=== PATIENT | male | born 1940 | race Caucasian/White ===

== ENCOUNTER 2018-10-09 06:46 | Emergency (ER) | payer MEDICARE ==
[~2018-10-09] VITALS: Ht 180.3 cm; Wt 85.5 kg
[~2018-10-09 06:46] MED LIST: ALBU18HF INH; AMLO10TA8 PO; ASPI-515 PO; CEFD300C37 PO; DOXY100C15 PO; FLUT1DIS3 INH; INSU100I28 SQ-INSULIN; INSU500V SQ; IPRA3AMP30 NEB; IRBE300T16 PO; LEVO750T26 PO; LISI-170 PO; LOVA10TA PO; METO-99 PO; MULT1TAB60 PO; OMEP-110 PO; PRED10TA PO; SITA1TAB5 PO; TIOT18CA INH
--- NOTE | 2018-10-09 06:57 | NUR ---
EKG IN TRIAGE. PT AMBULATES WITH STEADY GAIT.
[2018-10-09] MEDS ORDERED: ALBUTEROL/IPRATROPIUM 2.5MG/0.5MG, 3 ML NPPB ONE (07:30)
[2018-10-09 07:38] LABS: BASOPHILS # (AUTO) 0.04 x10^3/uL (0-0.1); BASOPHILS % (AUTO) 0 % (0-1); EOSINOPHILS # (AUTO) 0.16 x10^3/uL (0-0.4); EOSINOPHILS % (AUTO) 2 % (1-7); LYMPHOCYTES # (AUTO) 1.36 x10^3/uL (1-3.4); LYMPHOCYTES % (AUTO) 13 % (22-44); MD NO; MEAN CORPUSCULAR HEMOGLOBIN 31.9 pg (27.5-34.5); MEAN CORPUSCULAR VOLUME 96.7 fL (81-97); MEAN PLATELET VOLUME 7.6 fL (7.4-10.4); MONOCYTES # (AUTO) 1.08 x10^3/uL (0.2-0.8); MONOCYTES % (AUTO) 11 % (2-9); NEUTROPHILS # (AUTO) 7.68 x10^3/uL (1.8-6.8); NEUTROPHILS % (AUTO) 74 % (42-75); PLATELET COUNT 438 x10^3/uL (130-400); RED BLOOD COUNT 4.59 x10^6/uL (4.38-5.82); RED CELL DISTRIBUTION WIDTH 13.8 % (9.4-14.8)
[2018-10-09] MEDS ORDERED: ALBUTEROL/IPRATROPIUM 2.5MG/0.5MG, 3 ML ONE (07:41)
[2018-10-09 07:50] LABS: ALANINE AMINOTRANSFERASE 26 U/L (12-78); ANION GAP 8 mmol/L (5-15); CHLORIDE 95 mmol/L (98-107)
[2018-10-09 07:54] LABS: ALKALINE PHOSPHATASE 71 U/L (45-117); BILIRUBIN,TOTAL 0.5 mg/dL (0.2-1.0); CREATININE 0.63 mg/dL (0.7-1.3); TOTAL PROTEIN 7.7 g/dL (6.4-8.2); TROPONIN I < 0.015 ng/mL (0.000-0.045)
[2018-10-09 09:04] VITALS: BP 175/88
[2018-10-09] MEDS ORDERED: BICILLIN-LA 1,200,000 UNITS/2 ML IM ONE (10:00)
[2018-10-09] MEDS ORDERED: DEXAMETHASONE 4 MG/ML, 1ML PO ONE (10:00)
[2018-10-09] MEDS ORDERED: DEXAMETHASONE 4 MG/ML, 5ML ONE (10:06)
== END 2018-10-09 11:29 | disposition home or self-care (01) ==
LOC: ED 08:24
DX: J20.9 Acute bronchitis, unspecified (principal); I25.10 Atherosclerotic heart disease of native coronary artery without angina pectoris; I10 Essential (primary) hypertension; Z95.1 Presence of aortocoronary bypass graft; E11.9 Type 2 diabetes mellitus without complications
CPT/HCPCS: 36415; 71045; 80053; 83605; 83880; 84145; 84484; 85025; 87040; 93005; 94640; 99284; J1100; J7620

== ENCOUNTER 2019-12-20 07:23 | Emergency (ER) | payer MEDICARE ==
[~2019-12-20] VITALS: Ht 180.3 cm; Wt 93.5 kg
[~2019-12-20 07:23] MED LIST changes: -IRBE300T16 PO; +IRBE300T8 PO
--- NOTE | 2019-12-20 07:41 | NUR ---
PT TO ED WITH GI-BLEEDING STATES PHYLLIS RED BLOOD X3 WEEKS, WORSENING PERIUMBILICAL PAIN OVER THE LAST FEW DAYS, STATES HX OF THIS FOR 55 YEARS BUT COMES AND GOES. DENIES N/V/D. PT PLACED ON MONITOR, MD AT BEDSIDE FOR ASSESSMENT.
[2019-12-20 08:05] LABS: BASOPHILS # (AUTO) 0.01 x10^3/uL (0-0.1); BASOPHILS % (AUTO) 0 % (0-1); EOSINOPHILS # (AUTO) 0.32 x10^3/uL (0-0.4); EOSINOPHILS % (AUTO) 4 % (1-7); LYMPHOCYTES # (AUTO) 1.23 x10^3/uL (1-3.4); LYMPHOCYTES % (AUTO) 14 % (22-44); MD NO; MEAN CORPUSCULAR HEMOGLOBIN 29.9 pg (27.5-34.5); MEAN CORPUSCULAR HGB CONC 32.2 g/dL (33.2-36.2); MEAN CORPUSCULAR VOLUME 92.9 fL (81-97); MEAN PLATELET VOLUME 7.6 fL (7.4-10.4); MONOCYTES # (AUTO) 0.82 x10^3/uL (0.2-0.8); MONOCYTES % (AUTO) 10 % (2-9); NEUTROPHILS # (AUTO) 6.21 x10^3/uL (1.8-6.8); NEUTROPHILS % (AUTO) 72 % (42-75); PLATELET COUNT 343 x10^3/uL (130-400); RED BLOOD COUNT 4.69 x10^6/uL (4.38-5.82)
[2019-12-20 08:17] LABS: ALANINE AMINOTRANSFERASE 19 U/L (12-78); ANION GAP 7 mmol/L (5-15); CALCIUM 9.2 mg/dL (8.5-10.1); CHLORIDE 103 mmol/L (98-107)
[2019-12-20 08:20] LABS: ALKALINE PHOSPHATASE 57 U/L (45-117); BILIRUBIN,TOTAL 0.5 mg/dL (0.2-1.0); CREATININE 0.79 mg/dL (0.7-1.3); TOTAL PROTEIN 7.5 g/dL (6.4-8.2)
--- NOTE | 2019-12-20 08:47 | NUR ---
IV ESTABLISHED FOR CT SCAN, URINE SAMPLE WALKED TO LAB. PT RESTING IN [facility], ON MONITOR, CALL LIGHT WITHIN REACH.
[2019-12-20 08:48] LABS: MICROSCOPIC NOT IND
[2019-12-20 08:51] LABS: CULTURE INDICATED? NO
--- NOTE | 2019-12-20 09:13 | NUR ---
REPORT RECEIVED FROM PREET VAN. PT IS RESTING COMFORTABLY ON GURNEY, A&O, RESPS EVEN AND UNLABORED. PT DENIES PAIN, DENIES ANY NEEDS AT THIS TIME. AWAITING CT SCAN AND DISPO AT THIS TIME.
--- NOTE | 2019-12-20 09:45 | NUR ---
PT TO CT. NADN AT TRANSPORT.
[2019-12-20] MEDS ORDERED: OMNIPAQUE 350 MG/ML, 100ML BOTTLE ONE (09:54)
--- NOTE | 2019-12-20 10:10 | NUR ---
PT BACK FROM CT.
[2019-12-20 10:34] VITALS: BP 144/89
--- NOTE | 2019-12-20 10:34 | NUR ---
CHARU Torres at bedside to update pt with POC and results. pt a&o, resps even and unlabored. rodn at this time.
--- NOTE | 2019-12-20 10:53 | NUR ---
pt given dc instructions with instructions to follow up with MD Saleem (GI); contact info provided. pt has not passed any stool/blood with this ED stay. pt is a&o, resps eevn and unlabored, no complaint at dc. pt ambulatory to dc desk with steady gait. all questions answered.
== END 2019-12-20 10:54 | disposition home or self-care (01) ==
LOC: ED 07:52
DX: K62.5 Hemorrhage of anus and rectum (principal); R10.33 Periumbilical pain; R10.13 Epigastric pain; E78.5 Hyperlipidemia, unspecified; I25.10 Atherosclerotic heart disease of native coronary artery without angina pectoris; I10 Essential (primary) hypertension
CPT/HCPCS: 36415; 74177; 80053; 81003; 83605; 83690; 85025; 86850; 86900; 86902; 99285; Q9967

== ENCOUNTER 2020-01-20 08:59 | Outpatient (CLI) | payer MEDICARE ==
[~2020-01-20 08:59] MED LIST changes: +MULT-449 PO; -MULT1TAB60 PO
== END 2020-01-20 23:59 | disposition home or self-care (01) ==
LOC: STAR 08:59
PROVIDERS: ATTEND Internal Medicine Gastroenterology
DX: Z01.818 Encounter for other preprocedural examination (principal); Z11.59 Encounter for screening for other viral diseases
CPT/HCPCS: 93005; U0001

== ENCOUNTER 2020-01-26 05:57 | Day surgery (SDC) | payer MEDICARE ==
[~2020-01-26] VITALS: Ht 180.3 cm; Wt 88.0 kg
[~2020-01-26 05:57] MED LIST changes: -MULT-449 PO; +MULT1TAB60 PO
[2020-01-26 06:34] VITALS: BP 137/75
[2020-01-26] MEDS ORDERED: CHLORHEXIDINE 15 ML UDC MM STA (06:38)
[2020-01-26] MEDS ORDERED: LACTATED RINGERS 1,000 ML IV SCH (06:41)
[2020-01-26] MEDS ORDERED: FENTANYL PF 100 MCG/2ML ONE (07:05)
[2020-01-26] MEDS ORDERED: MIDAZOLAM 1 MG/ML, 2ML ONE (07:05)
[2020-01-26] MEDS ORDERED: FENTANYL PF 100 MCG/2ML IV PRN (07:30)
[2020-01-26] MEDS ORDERED: PROPOFOL 10 MG/ML, 20ML ONE (07:30)
[2020-01-26] MEDS ORDERED: HYDROmorphone 1 MG/ML, 1ML INJ IVPush PRN (07:30)
[2020-01-26] MEDS ORDERED: LABETALOL 5MG/ML, 20ML IV PRN (07:30)
[2020-01-26] MEDS ORDERED: PROMETHAZINE 25 MG/ML, 1ML IVPush PRN (07:30)
[2020-01-26] MEDS ORDERED: EPHEDRINE 50 MG/ML, 1ML ONE (07:30)
[2020-01-26] MEDS ORDERED: SUCCINYLCHOLINE 20 MG/ML, 10ML ONE (07:30)
[2020-01-26] MEDS ORDERED: hydrALAzine 20 MG/ML, 1ML IV PRN (07:30)
[2020-01-26] MEDS ORDERED: ONDANSETRON 2MG/ML, 2ML IVPush PRN (07:30)
[2020-01-26] MEDS ORDERED: HYDROcodone/APAP 7.5-325MG/15ML UDC PO PRN (07:30)
[2020-01-26] MEDS ORDERED: ONDANSETRON 2MG/ML, 2ML ONE (07:31)
== END 2020-01-26 11:00 | disposition home or self-care (01) ==
LOC: OUT 05:57
PROVIDERS: ATTEND Internal Medicine Gastroenterology
DX: R13.10 Dysphagia, unspecified (principal); K62.5 Hemorrhage of anus and rectum; D12.2 Benign neoplasm of ascending colon; K31.7 Polyp of stomach and duodenum; K62.7 Radiation proctitis; K44.9 Diaphragmatic hernia without obstruction or gangrene; K57.30 Diverticulosis of large intestine without perforation or abscess without bleeding; K64.0 First degree hemorrhoids; K55.059 Acute (reversible) ischemia of intestine, part and extent unspecified; J44.9 Chronic obstructive pulmonary disease, unspecified; I25.10 Atherosclerotic heart disease of native coronary artery without angina pectoris; I10 Essential (primary) hypertension; E11.9 Type 2 diabetes mellitus without complications; E78.5 Hyperlipidemia, unspecified; E66.3 Overweight; Z68.29 Body mass index [BMI] 29.0-29.9, adult; Z79.82 Long term (current) use of aspirin; Z79.4 Long term (current) use of insulin; Z79.899 Other long term (current) drug therapy; Z85.46 Personal history of malignant neoplasm of prostate; Z90.49 Acquired absence of other specified parts of digestive tract; Z92.3 Personal history of irradiation; Z95.1 Presence of aortocoronary bypass graft; Z98.890 Other specified postprocedural states
CPT/HCPCS: 43239; 43248; 45380; 45382; 45385; 82962; 88305; J0330; J2250; J2405; J2704; J3010; J7120

== ENCOUNTER 2020-12-19 06:35 | Day surgery (SDC) | payer MEDICARE ==
[~2020-12-19] VITALS: Ht 180.3 cm; Wt 87.0 kg
[~2020-12-19 06:35] MED LIST changes: +AMLO-211 PO; -AMLO10TA8 PO; -ASPI-515 PO; +ASPI-963 PO; +MULT-449 PO; -MULT1TAB60 PO
[2020-12-19] MEDS ORDERED: LACTATED RINGERS 1,000 ML IV SCH (07:30)
[2020-12-19] MEDS ORDERED: CHLORHEXIDINE 15 ML UDC PO ONE (07:30)
[2020-12-19 07:31] VITALS: BP 148/67
[2020-12-19] MEDS ORDERED: ONDANSETRON 2MG/ML, 2ML IVPush PRN (09:30)
[2020-12-19] MEDS ORDERED: EPHEDRINE 50 MG/ML, 1ML IVPush PRN (09:30)
[2020-12-19] MEDS ORDERED: PROMETHAZINE 25 MG/ML, 1ML IVPush PRN (09:30)
[2020-12-19] MEDS ORDERED: HYDROmorphone 1 MG/ML, 1ML INJ IVPush PRN (09:30)
[2020-12-19] MEDS ORDERED: ACETAMINOPHEN 325 MG TABLET PO PRN (09:30)
[2020-12-19] MEDS ORDERED: OXYcodone 5 MG/5 ML ORAL.SOL UDC PO PRN (09:30)
[2020-12-19] MEDS ORDERED: LABETALOL 5MG/ML, 20ML IV PRN (09:30)
[2020-12-19] MEDS ORDERED: FENTANYL PF 100 MCG/2ML IV PRN (09:30)
[2020-12-19] MEDS ORDERED: hydrALAzine 20 MG/ML, 1ML IV PRN (09:30)
[2020-12-19] MEDS ORDERED: PROPOFOL 10 MG/ML, 20ML ONE ×2 (09:48→10:04)
[2020-12-19] MEDS ORDERED: PROPOFOL 50 ML ONE (09:48)
[2020-12-19] MEDS ORDERED: EPHEDRINE 50 MG/ML, 1ML ONE (10:03)
== END 2020-12-19 12:05 | disposition home or self-care (01) ==
LOC: OUT 06:35
PROVIDERS: ATTEND Internal Medicine
DX: R10.13 Epigastric pain (principal); K55.21 Angiodysplasia of colon with hemorrhage; K62.7 Radiation proctitis; K64.8 Other hemorrhoids; K21.9 Gastro-esophageal reflux disease without esophagitis; K29.50 Unspecified chronic gastritis without bleeding; K57.30 Diverticulosis of large intestine without perforation or abscess without bleeding; K31.7 Polyp of stomach and duodenum; I25.10 Atherosclerotic heart disease of native coronary artery without angina pectoris; E11.9 Type 2 diabetes mellitus without complications; I10 Essential (primary) hypertension; E78.5 Hyperlipidemia, unspecified; J44.9 Chronic obstructive pulmonary disease, unspecified; E66.3 Overweight; Z68.28 Body mass index [BMI] 28.0-28.9, adult; Z20.822 Contact with and (suspected) exposure to COVID-19; Z79.82 Long term (current) use of aspirin; Z79.4 Long term (current) use of insulin; Z79.899 Other long term (current) drug therapy; Z85.46 Personal history of malignant neoplasm of prostate; Z86.010 Personal history of colon polyps; Z92.3 Personal history of irradiation; Z95.1 Presence of aortocoronary bypass graft; Z90.49 Acquired absence of other specified parts of digestive tract; Z98.890 Other specified postprocedural states
CPT/HCPCS: 43239; 43251; 45382; 82962; 88305; 93005; J2704; J7120; U0003

== ENCOUNTER 2021-02-15 05:01 | Emergency (ER) | payer MEDICARE ==
[~2021-02-15] VITALS: Ht 180.3 cm; Wt 86.2 kg
[~2021-02-15 05:01] MED LIST changes: +DOXY-246 PO; -DOXY100C15 PO
--- NOTE | 2021-02-15 05:40 | NUR ---
PT COMPLAINING OF LOWER ABDOMENAL PAIN WITH HEMATURIA. PT AMBULATED TO BATHROOM WITH STEADY GAIT AND BACK TO ROOM. ATTACHED TO MONITORS. VSS. NADN. BED IN LOW POSITION, RAILS ENGAGED, CALL LIGHT ON LAP. AT BEDSIDE FOR EVAL. TIBURCIO
[2021-02-15 06:10] LABS: BASOPHILS % (AUTO) 1 % (0-1); EOSINOPHILS % (AUTO) 2 % (1-7); LYMPHOCYTES % (AUTO) 12 % (22-44); MEAN CORPUSCULAR HEMOGLOBIN 29.8 pg (27.5-34.5); MEAN CORPUSCULAR HGB CONC 32.8 g/dL (33.2-36.2); MEAN PLATELET VOLUME 7.8 fL (7.4-10.4); MONOCYTES % (AUTO) 10 % (2-9); NEUTROPHILS % (AUTO) 75 % (42-75); PLATELET COUNT 329 x10^3/uL (130-400); RED BLOOD COUNT 4.37 x10^6/uL (4.38-5.82); RED CELL DISTRIBUTION WIDTH 15.6 % (9.4-14.8)
[2021-02-15 06:19] LABS: MICROSCOPIC INDICATED
[2021-02-15 06:20] LABS: ALBUMIN 3.6 g/dL (3.4-5.0); ANION GAP 8 mmol/L (5-15); CALCIUM 8.9 mg/dL (8.5-10.1); CHLORIDE 107 mmol/L (98-107); CREATININE 0.58 mg/dL (0.7-1.3)
[2021-02-15 06:23] LABS: INTERNATIONAL NORMALIZED RATIO 1.05 (0.93-1.1); PROTHROMBIN TIME 11.2 Seconds (9.6-11.5)
[2021-02-15 06:37] VITALS: BP 130/67
--- NOTE | 2021-02-15 06:52 | NUR ---
Patient given discharge instructions and they have confirmed that they understand the instructions. Patient ambulatory with steady gait. NAD, all questions answered appropriately, denies additional needs at this time. No personal belongings left in room after discharge.
== END 2021-02-15 06:53 | disposition home or self-care (01) ==
LOC: ED 05:20
DX: R31.0 Gross hematuria (principal); I10 Essential (primary) hypertension; E11.9 Type 2 diabetes mellitus without complications; I25.10 Atherosclerotic heart disease of native coronary artery without angina pectoris; E78.5 Hyperlipidemia, unspecified; Z87.891 Personal history of nicotine dependence; Z95.1 Presence of aortocoronary bypass graft
CPT/HCPCS: 36415; 80048; 81001; 82040; 85025; 85610; 99283